=== PATIENT | male | born 1935 | race Caucasian/White ===

== ENCOUNTER 2018-10-26 01:39 | Emergency (ER) | payer MEDICARE ==
--- NOTE | 2018-10-26 02:57 | PHYS DOC ---
Adult General Chief Complaint Chief Complaint: CPR/FULL ARREST HPI HPI pmh pe 10/17, on anticoagulation cabg and pacer 7 years ago lung cancer last chemo last week. recent admit for fluid overload was seen in ed yestserday at ku d/c after diuresis, ct scan etc according to family chart not availble for review during code. Patient is a 83 year old m brought in by ambulance full cardiac arrest. Apparently fell down in the bathroom had a very faint pulse and then soon as the paramedics put him out of the bathroom he lost his pulse downtime was at least 20 minutes they initiated CPR he was in a basically a pulseless electrical activity did notice pacemaker rhythm however there was no pulse with that there was no shockable rhythm they bagged him they gave epinephrine on arrival to the emergency room patient was found to be in a pulseless electrical activity we initiated CPR and gave multiple doses of epinephrine we perform intubation central line access we were arranging pressor support patient continued to lose his pulse over and over and over again. He arrived at 139 and at 2:30 AM after multiple doses of epinephrine bicarbonate several rounds of her current CPR see nurse's notes for full details on the timing I talked to the family Laura other family cleopatra we talked in detail about the patient's possible neurologic outcome given the severe cardiac arrest recurrent inability to maintain spontaneous circulation, we have opted to stop CPR time of 231. In addition Cleopatra did tell me that the patient himself told her yesterday he did not want any heroic measures like this he did not want to wake up on a machine. Due to that I felt this was a reasonable course of action. Critical care time was 75 minutes exclusive of procedures. Indication: Vascular access Consent: The patient provided emergency condition Procedure: The patient was positioned appropriately and the skin over the left femoral [VEIN] was prepped and draped in a sterile fashion. . Ultrasound guidance utilized. A large bore needle was used to identify the vein. A guide wire was then inserted into the vein through the needle. A triple lumen catheter was then inserted into the vessel over the guide wire using the Seldinger technique. All ports showed good, free flowing blood return and were flushed with saline solution. The catheter was then securely fastened to the skin with sutures and covered with a sterile dressing. Complications: none. Initial attempt on the right groin without ultrasound access was unsuccessful. Pressure was held in that area. Review of Systems Review of Systems uanble due to acuity Current Medications Current Medications Current Medications Medications (Trade) Dose Ordered Sig/Hemant Start Time Stop Time Status Last Admin Dose Admin Norepinephrine Bitartrate 250 ml @ 16.875 mls/ hr 1X ONCE 10/26/18 03:00 10/26/18 17:48 Allergies Allergies Allergies Coded Allergies Type Severity Reaction Last Updated Verified Unable to Assess 10/26/18 No Physical Exam Physical Exam Constitutional: obtunded HENT: Normocephalic, atraumatic, Eyes: fixed pupils Neck: Normal range of motion, no tenderness, supple, no stridor. [] Cardiovascular no pulse or rhyhtm on arriva Lungs & Thorax: with bagging coarse b/l Abdomen ecchymopsis throughout abdomen inguinal hernia noted no pulsatile mass Skin: Warm, dry, multipe ecchymosis throughout Extremities: No tenderness, no cyanosis, no clubbing, ROM intact, Neurologic: obtunded EKG EKG [] Radiology/Procedures Radiology/Procedures [] Course & Med Decision Making Course & Med Decision Making Pertinent Labs and Imaging studies reviewed. (See chart for details) []see hpi for mdm critical care proceudre leanna Angel Disclaimer Jeanne Disclaimer This electronic medical record was generated, in whole or in part, using a voice recognition dictation system. Departure Departure Impression: Primary Impression: Cardiac arrest Disposition: 20 Condition: Referrals: NO PCP (PCP) MISTI HUSAIN MD Oct 26, 2018 02:57
[2018-10-26] MEDS ORDERED: NOREPINEPHRIN 8MG/250ML PREMIX 250 ML IV ONE (03:00)
[2018-10-26] MEDS ORDERED: SODIUM BICARB ADULT 8.4% 50 MEQ/50 ML DISP.SYRIN. ONE (04:00)
[2018-10-26] MEDS ORDERED: EPINEPHrine SYRINGE 1 MG/10 ML SYRINGE ONE (04:00)
[2018-10-26] MEDS ORDERED: DOPamine 400MG/250ML PREMIX 400 MG/250 ML BAG IV ONE (04:00)
--- NOTE | 2018-10-26 06:28 | EKG ---
[facility] [address] [place] [address] Test Date: 2018-10-26 Test Time: 01:53:11 Pat Name: DARRYL PLATT Department: Room: Gender: M [employer]: : 1935 Requested By: MISTI HUSAIN Order Number: [id number] Reading MD: Haris Moffett MD Measurements Intervals [place] Rate: 77 P: PA: QRS: -47 QRSD: 124 T: 147 QT: 390 QTc: 448 Interpretive Statements PROBABLE JUNCTIONAL RHYTHM RBBB LAFB Electronically Signed On 10-28-2018 11:20:25 CDT by Haris Moffett MD
== END 2018-10-26 04:55 | disposition expired ==
LOC: ER 01:39 → EDBD 01:39 → ER 04:55
DX: I46.9 Cardiac arrest, cause unspecified (principal); Z95.5 Presence of coronary angioplasty implant and graft; Z95.0 Presence of cardiac pacemaker
CPT/HCPCS: 31500; 36556; 92950; 93005; 99291; 99292; J0171; J1265